=== PATIENT | female | born 1955 | race Caucasian/White ===

== ENCOUNTER 2016-08-25 02:09 | Emergency (ER) | payer MEDICAID ==
[~2016-08-25] VITALS: Ht 165.1 cm; Wt 58.0 kg
[~2016-08-25 02:09] MED LIST: ADVA250A INH; ALBU1.25 NEB; ALBUAER3 INH; CLON1TAB PO; FLUT1SPR9 EACH NARE; IPRASOL INH
[2016-08-25 02:12] VITALS: PULSE 113; RESP 18; O2SAT 93
--- NOTE | 2016-08-25 03:20 | PD ---
HPI Chief Complaint: Respiratory Symptoms Time Seen by Provider: 03:09 Travel History International Travel<30 days: No Contact w/Intl Traveler<30days: No Traveled to known affect area: No History of Present Illness HPI This 61 year-old woman who presented to the emergency department reportedly for trouble breathing. She asked staff states that the a person dropped her off stating something to the effect of "my ex- is having an asthma attack." Initially she apparently was breathing some, was brought as a straight back, and then almost immediately upon arriving to the room and the back began to decompensate, was unresponsive, and lost pulses. No other history is available. The person the dropped her off does not seem to be available. History Past Medical History Narrative Medical Unknown Menopausal: Yes Social History Alcohol Use: No Tobacco Use: Yes ("one pack of cigarettes a day,smoking since age 13,quit x1 for 3yrs") Allergies-Medications (Allergen,Severity, Reaction): Coded Allergies: Lortab (Verified Allergy, Severe, rash, 08/25/16) Phenobarbital (Verified Allergy, Severe, rash/sob, 08/25/16) Premarin (Verified Allergy, Severe, swelling, 08/25/16) Nicotine (Verified Allergy, Intermediate, Rash, 08/25/16) Abilify (Verified Allergy, Unknown, Blurred Vision, 08/25/16) Gabapentin (Verified Allergy, Unknown, Blurred Vision, 08/25/16) Depakote (Verified Adverse Reaction, Severe, chest pain, 08/25/16) Temazepam (Verified Adverse Reaction, Severe, chest pain, 08/25/16) Topamax (Verified Adverse Reaction, Intermediate, Nausea/Vomiting, 08/25/16 ) Reported Meds & Prescriptions Reported Meds & Active Scripts Active Advair Diskus Inh (Fluticasone-Salmeterol Inh) 250-50 Mcg/Blist Aer 1 Puff INH BID Rinse mouth after use. Duoneb (Ipratropium-Albuterol Neb) 0.5-2.5 Mg/3 Ml Neb 1 Nebule INH DAILY Proair Hfa 8.5 GM Inh (Albuterol Sulfate) 90 Mcg/Act Aer 1 Puff INH Q4H PRN 108 mcg/actuation Flonase Allergy Relief Children Nasal [place] (Fluticasone Nasal [place]) 50 Mcg/ Act [place] 1 [place] EACH NARE DAILY 50 mcg/spray Reported Clonazepam 1 Mg Tab 1 Mg PO HS Albuterol Neb (Albuterol Sulfate) 1.25 Mg/3 Ml Neb 1.25 Mg NEB Q6HR NEB PRN Review of Systems Except as stated in HPI: all other systems reviewed are Neg Physical Exam Narrative GENERAL: 61-year-old woman, obtunded. Initially responded somewhat purposefully with compressions. SKIN: Clammy and cyanotic. HEAD: Atraumatic. Normocephalic. EYES: Pupils equal and round. No scleral icterus. No injection or drainage. ENT: No nasal bleeding or discharge. Mucous membranes pink and moist. NECK: Trachea midline. Some JVD. CARDIOVASCULAR: In cardiac arrest. RESPIRATORY: Some agonal spontaneous respiratory effort. Bilateral breath sounds. GASTROINTESTINAL: Abdomen soft, non-tender, nondistended. Hepatic and splenic margins not palpable. MUSCULOSKELETAL: No obvious deformities. Decreased muscle bulk. NEUROLOGICAL: Obtunded. Data Data Last Documented VS Vital Signs Date Time Temp Pulse Resp B/P Pulse Ox O2 Delivery O2 Flow Rate FiO2 08/25/16 02:12 113 18 93 MDM Medical Decision Making Medical Screen Exam Complete: Yes Emergency Medical Condition: Yes Differential Diagnosis Cardiac arrest, pneumothorax, asthma, PE, hypoglycemia, acidosis, hypotension, other Narrative Course 61-year-old presents emergent part respiratory difficulties with cardiovascular collapse and almost immediately upon being roomed. Patient currently is some history of asthma. Records show COPD. Initially patient was in an agonal PEA. With compression she actually was still little bit purposeful with reach with her hand and gag with being intubated. She was intubated with RSI medications. After intubation, ACLS was continued she was given epinephrine. Began rapid survey to try to elucidate cause of her PEA arrest. Ultrasound was utilized. I didn't see any evidence of pneumothorax. There is no pericardial Or not. I didn't see any obvious right heart dilatation to suggest PE. There was some organized cardiac activity on the first ultrasound survey. There is no fluid in the abdomen. ACLS was continued. End-tidal stayed around 20. Oxygen saturations were between 70-80 with chest compressions. Despite this there was no improvement or return of spontaneous circulation. There were some intermittent episodes of coarse V. fib that were treated with cardioversion, and she was given amiodarone. She was also empirically treated with 2 g of calcium chloride for possible hyperkalemic episode, blood sugar was checked and was in the 200s, she was given 2 A of sodium bicarbonate for possible acidosis. After after there continue to be no improvement, she was treated empirically for pneumothorax with needle decompression of the chest. There was still no improvement or return of spontaneous circulation. She was very cyanotic. My impression was that if she had a respiratory arrest she should've rapidly improved with immediate intubation which she received. She still remained incomplete cardiovascular collapse. Given this, leading consideration was pulmonary embolism. Given this, she was empirically treated for pulmonary embolism with 50 mg of TPA. ACLS was continued. During this time patient's color continued to deteriorate. End tidal CO2 continued to wane. Pulse ox continued to wane throughout the 70s. She continued and mostly an agonal PEA on the monitor. After prolonged attempts at resuscitation, with no response to therapeutic measures, patient was pronounced at 0306. Procedures Procedure Narrative Intubation: During resuscitation, patient was intubated using a fiberoptic laryngoscope with a 7.5 ET tube. Patient tolerated well. Good end-tidal. Tube was secured. Diagnosis Primary Impression: Cardiac arrest Bimal Fofana MD Aug 25, 2016 03:20
[2016-08-25] MEDS ORDERED: SODIUM BICARBONATE 8.4% INJ 50 MEQ/50 ML SYR IV ONE (05:00)
[2016-08-25] MEDS ORDERED: EPINEPHrine HCL (1:10,000) 1 MG/10 ML SYRINGE IV ONE ×2 (05:00)
[2016-08-25] MEDS ORDERED: AMIODARONE HCL 150 MG/3 ML VIAL IV ONE (05:00)
[2016-08-25] MEDS ORDERED: NALOXONE HCL 4 MG/10 ML MDV IV ONE (05:00)
[2016-08-25] MEDS ORDERED: CALCIUM CHLORIDE 10% SOLN 1 GRAM/10 ML SYR IV ONE (05:00)
== END 2016-08-25 05:50 | disposition expired ==
LOC: NEPC 02:09 → NEPI 05:50
DX: I46.9 Cardiac arrest, cause unspecified (principal); J44.9 Chronic obstructive pulmonary disease, unspecified; F17.210 Nicotine dependence, cigarettes, uncomplicated
CPT/HCPCS: 31500; 32554; 92950; 99285; J0171; J0282; J2310